=== PATIENT | female | born 1930 | race Caucasian/White ===

== ENCOUNTER 2016-05-15 07:29 | Emergency (ER) | payer OTHER ==
[2016-05-15 07:51] VITALS: BP 137/77; PULSE 74; TEMP 97.5; BMI 25.0
--- NOTE | 2016-05-15 08:13 | PDOC ---
History of Present Illness - General Chief Complaint: Pain, Acute Stated Complaint: FALL, LFT SHOULDER INJURY Time Seen by Provider: 05/15/16 08:04 History Source: Patient Exam Limitations: No Limitations - History of Present Illness Initial Comments: 05/15/16 08:11 85 yr female slipped on ice and fell 3 days ago injured left shoulder/upper arm. No head trauma no LOC. Pt taking ibuprofen with relief. 05/15/16 08:12 Occurred: reports: other (3 days ago) Severity: reports: mild Upper Extremity Pain Location: right: shoulder Method of Injury: reports: fell Extremity Pain Location - Extremity Pain Location Extremity Pain Locations: left: arm Past History - Past Medical History Allergies/Adverse Reactions: Allergies Allergy/AdvReac Type Severity Reaction Status Date / Time No Known Allergies Allergy Verified 05/15/16 07:44 Home Medications: Ambulatory Orders Nebivolol HCl [Bystolic] 2.5 mg PO DAILY 02/01/12 Valsartan [Diovan] 80 mg PO DAILY #30 tablet 09/30/15 COPD: Yes HTN: Yes - Psycho/Social/Smoking Cessation Hx Anxiety: No Suicidal Ideation: No Smoking Status: No Smoking History: Former smoker Have you smoked in the past 12 months: No Number of Cigarettes Smoked Daily: 0 If you are a former smoker, when did you quit?: 1996 Information on smoking cessation initiated: No Hx Alcohol Use: No Drug/Substance Use Hx: No Substance Use Type: None Review of Systems - Review of Systems Able to Perform ROS?: Yes Is the patient limited Vietnamese proficient: No Constitutional: No: Symptoms Reported HEENTM: No: Symptoms Reported Respiratory: No: Symptoms reported Cardiac (ROS): No: Symptoms Reported ABD/GI: No: Symptoms Reported : No: Symptoms Reported Musculoskeletal: Yes: See HPI *Physical Exam - Vital Signs Last Vital Signs Temp Pulse Resp BP Pulse Ox 97.5 F L 74 18 137/77 97 05/15/16 07:45 05/15/16 07:45 05/15/16 07:45 05/15/16 07:45 05/15/16 07:45 - Physical Exam General Appearance: Yes: Nourished, Appropriately Dressed HEENT: positive: EOMI, VIVIAN, TMs Normal, Pharynx Normal Neck: negative: Tender Respiratory/Chest: positive: Lungs Clear, Normal Breath Sounds Cardiovascular: positive: Regular Rhythm, Regular Rate Gastrointestinal/Abdominal: positive: Normal Bowel Sounds, Soft Extremity: positive: Normal Capillary Refill, Normal Inspection, Tender (left humeral head ), Other (limited ROM) Integumentary: positive: Normal Color, Dry, Warm Neurologic: positive: Fully Oriented, Alert, Normal Mood/Affect, Normal Response , Motor Strength 5/5 Procedures - Splinting Sling: Yes (left shoulder) ED Treatment Course - RADIOLOGY Radiology Studies Ordered: Category Date Time Status SHOULDER-LEFT [RAD] Stat Radiology 05/15/16 08:07 Ordered Medical Decision Making - Medical Decision Making 05/15/16 08:13 cc: left shoulder injury s/p fall will xray to r/o fracture nv intact, strong radial pulse, neg numbness or tingling 05/15/16 08:38 *DC/Admit/Observation/Transfer Diagnosis at time of Disposition: Shoulder injury Qualifiers: Encounter type: initial encounter Laterality: left Qualified Code(s): S49.92XA - Unspecified injury of left shoulder and upper arm, initial encounter - Discharge Dispostion Disposition: HOME Condition at time of disposition: Good - Referrals Referrals: Precious Huff MD [Primary Care Provider] - Santos Hall MD [Staff Physician] - - Patient Instructions Additional Instructions: use the sling while awake for the next few days follow with the orthopedist call today to make appointment for this week or next week continue to take ibuprofen as needed
== END 2016-05-15 09:29 | disposition home or self-care (01) ==
LOC: JERFT 07:29
DX: S49.92XA Unspecified injury of left shoulder and upper arm, initial encounter (principal); W00.9XXA Unspecified fall due to ice and snow, initial encounter; Y93.89 Activity, other specified; Y92.9 Unspecified place or not applicable; Z87.891 Personal history of nicotine dependence
CPT/HCPCS: 73030-TC-LT; 99281-25

== ENCOUNTER 2018-04-25 07:45 | Emergency (ER) | payer OTHER ==
[2018-04-25 07:56] VITALS: BP 156/80; PULSE 77; TEMP 97.9; BMI 23.3
--- NOTE | 2018-04-25 08:11 | PDOC ---
Attending Attestation - Resident Resident Name: LedaAracelis - ED Attending Attestation I have performed the following: I have examined & evaluated the patient, The case was reviewed & discussed with the resident, I agree w/resident's findings & plan, Exceptions are as noted - HPI HPI: 04/25/18 08:10 87y F hx chf (on laxis) presents with cough x 1 week that is productive of whitish sputum. Pt denies any hemoptysis, fever/chills, leg swelling, orthopnea , cp, sob, abd pain, diarrhea, melena, bpr. The pt states the cough feels a bit better, but decided to come in due to the lingering cough. Pt notes some times feels alonzo, but has had no change in her excercise tolerance. pt endorses mild nasal congestion. PMD: Dr. Huff - Physicial Exam PE: 04/25/18 08:34 GENERAL: The patient is awake, alert, and fully oriented, Nontoxic - in no acute distress. HEAD: Normocephalic, atraumatic. EYES: extraocular movements intact, sclera anicteric, conjunctiva clear. ENT: Normal voice, Moist mucous membranes. NECK: Normal range of motion, supple LUNGS: Breath sounds equal, clear to auscultation bilaterally. No wheezes, no rhonchi, no rales. HEART: Regular rate and rhythm, normal S1 and S2 without murmur, rub or gallop. ABDOMEN: Soft, nontender, normoactive bowel sounds. No guarding, no rebound. No CVA tenderness EXTREMITIES: Normal range of motion, trace edema. NEUROLOGICAL: No facial assymetry, Normal speech, moving all 4 extermities spontaneously and symmetrically PSYCH: Normal mood, normal affect. SKIN: Warm, Dry, normal turgor, - Medical Decision Making 04/25/18 08:42 87-year-old female history of CHF presenting with 1 week of cough productive of whitish sputum without any fever, chills, chest pain, worsening dyspnea exertion , orthopnea with some mild nasal congestion. On exam the patient is well- appearing, with a nonfocal exam. Likely URI consider possible mild CHF Will obtain blood work, chest x-ray EKG Anticipate discharge with supportive management 04/25/18 10:42 labs unrmarkable cxr clear will dc with pmd fu supportive care at home
--- NOTE | 2018-04-25 08:53 | PDOC ---
History of Present Illness - General Chief Complaint: Cold Symptoms Stated Complaint: COUGH Time Seen by Provider: 04/25/18 07:59 - History of Present Illness Initial Comments: Janae De La Vega is an 87yo woman with a PMH of CHF who presents to the ED with cough for one week. She states that she was concerned because the cough "just won't go away like it should" and she is worried that she has bronchitis. She does have an occasional cough at baseline, but this is worse than usual. It does not feel similar to when she has CHF exacerbation, when she feels more short of breath than she does now. She does admit to taking her lasix intermittently at home but says that she has discussed this with her quality control analyst; she takes it when she is feeling fluid overloaded. Ms De La Vega endorses nasal and sinus congestion along with the cough. She has not had any fevers, chills, increased SOB, LE edema, chest pain, nausea/vomiting, or increase or change in sputum production. Past History - Past Medical History Allergies/Adverse Reactions: Allergies Allergy/AdvReac Type Severity Reaction Status Date / Time No Known Allergies Allergy Verified 05/15/16 07:44 Home Medications: Ambulatory Orders Nebivolol HCl [Bystolic] 2.5 mg PO DAILY 02/01/12 Valsartan [Diovan] 80 mg PO DAILY #30 tablet 09/30/15 COPD: Yes HTN: Yes - Immunization History Immunization Up to Date: Yes - Suicide/Smoking/Psychosocial Hx Smoking Status: No Smoking History: Never smoked Have you smoked in the past 12 months: No Number of Cigarettes Smoked Daily: 0 If you are a former smoker, when did you quit?: 1996 Information on smoking cessation initiated: No Hx Alcohol Use: No Drug/Substance Use Hx: No Substance Use Type: None Review of Systems - Review of Systems Comments:: General: No fevers, no chills, no weight or appetite change, no malaise HEENT: No changes in vision, no changes in hearing, no congestion, no sore throat CV: No chest pain, no palpitations, no LE edema Pulm: No inc SOB, + cough, no wheezing GI: No nausea or vomiting, no change in bowel habits, no melena : No frequency, no urgency, no dysuria Musc: No back pain, no joint swelling, no recent injury Skin: No rash, no lesions, no erythema Endo: No excessive thirst, no heat/cold intolerance Heme: No unusual bruising or bleeding, no swollen glands Neuro: No syncope, no numbness/tingling, no focal weakness Vasc: No claudication Psych: No recent change in mood, no SI or HI *Physical Exam - Vital Signs Last Vital Signs Temp Pulse Resp BP Pulse Ox 97.9 F 77 16 156/80 95 04/25/18 07:53 04/25/18 07:53 04/25/18 07:53 04/25/18 07:53 04/25/18 07:53 - Physical Exam Comments: General: Comfortable, no acute distress HEENT: PERRL, EOMI, MMM, voice normal, normal neck ROM, no LAD Cards: RRR, no murmur appreciated Pulm: Comfortable on room air, slightly coarse breath sounds b/l Abd: Soft, nontender, nondistended : No CVA tenderness Ext: Atraumatic. No LE edema. ROM intact. Strength 5/5 and equal bilaterally Vasc: Extremities WWP. Skin: Normal color, no rashes or lesions Neuro: A&Ox3, CN grossly intact, normal speech, motor/sensory grossly intact and symmetric Psych: Mood appropriate to situation Moderate Sedation - Procedure Monitoring Vital Signs: Procedure Monitoring Vital Signs Temperature 97.9 F 04/25/18 07:53 Pulse Rate 77 04/25/18 07:53 Respiratory Rate 16 04/25/18 07:53 Blood Pressure 156/80 04/25/18 07:53 O2 Sat by Pulse Oximetry (%) 95 04/25/18 07:53 Heart Score/ECG Review - History History: Slightly suspicious - Electrocardiogram EKG: Normal - Age Age: >/= 65 - Risk Factors Risk Factors Heart Score: No Hx Hypercholesterolemia, No Hx Hypertension, No Hx Diabetes, No Smoking History, No Positive family hx of cardiac disease, No Hx Obesity Based on the list above the patient has:: 1-2 risk factors - ECG Intrepretation Rhythm: Regular Rhythm - [place]: Left [place] Deviation - P and [place] Prominent R with upright T in V1 (true posterior [place]): No Delta Wave(s) Present: No WPW: No - QRS Poor R Wave Progression: No Q Wave Present: No - ST and T Early Repolarization: No Non Specific ST-T Wave changes: No Flattened T Waves: No Prolonged Q-T Interval: No - ECG Impressions Normal ECG: Yes Non-specific ST Elevation: No Ischemic Changes: No Bradycardia: No ED Treatment Course - LABORATORY CBC & Chemistry Diagram: 04/25/18 09:00 04/25/18 09:00 - RADIOLOGY Radiology Studies Ordered: Category Date Time Status CHEST PA & LAT [RAD] Stat Radiology 04/25/18 08:10 Ordered Medical Decision Making - Medical Decision Making 04/25/18 08:15 Janae De La Vega is an 87yo woman with a PMH of CHF who presents to the ED with cough for a week. As she endorses nasal/sinus congestion but denies any SOB, chest pain, fevers/chills, n/v, or other associated symptoms, this is more suggestive of URI w/ cough than influenza or CHF exacerbation. - CBC, CMP. EKG to rule out acute cardiac pathology given pt's age and h/o CHF - CXR to evaluate for focal consolidation or fluid overload 04/25/18 09:21 - EKG reviewed. NSR, HR 65 - CXR completed. No focal consolidation, no congestion. Unchanged from previous. No concerns. - CBC completed w/o abnormalities. Chemistry pending - Discussed results at this point with Ms De La Vega. Most likely URI with cough. Discussed PMD follow up if her symptoms do not improve, and she states understanding and agreement. Likely to d/c home pending chemistry results. 04/25/18 10:02 - Chemistry notable for Cr 1.6, BUN 47. No recent results in system for comparison - Discussed with Ms De La Vega. Reports that she has been told that her kidney numbers were high previously. She states that she may not have been hydrating well at home recently. She agrees to rehydrate orally at home - Call placed to Dr Huff's service to confirm close follow up. 04/25/18 10:12 - Discussed with MICHELLE Laurent liquefaction plant operator for Dr Huff. She agrees with the plan to orally hydrate at home with Cr/BUN recheck early next week. - Instructed Ms De La Vega to increase her fluid intake, especially water, throughout the next few days and to hold her lasix until instructed otherwise. She understands and agrees with this plan, and she states that she feels that she's likely dehydrated. Discussed with Dr Mok. Aracelis Tompkins PGY1 *DC/Admit/Observation/Transfer Diagnosis at time of Disposition: URI with cough and congestion, Prerenal azotemia - Discharge Dispostion Disposition: HOME Condition at time of disposition: Stable Decision to Admit order: No - Referrals Referrals: Precious Huff MD [Primary Care Provider] - - Patient Instructions Printed Discharge Instructions: DI for Acute Bronchitis, DI for Common Cold Additional Instructions: Discharge Instructions: - You were seen in the emergency department for a cough over the past week along with nasal congestion - You had blood tests to check your cell counts and electrolytes. These were all normal aside from increased kidney function numbers, which could be due to mild dehydration. You also had a chest xray and EKG to check your heart and lungs, and these were both normal as well. - Your symptoms are most likely caused by a virus. Unfortunately, antibiotics do not treat a virus, but the symptoms will improve and resolve over time. Your cough could last up to 4 weeks, even once you feel better otherwise. - At home, make sure you are drinking plenty of fluids to stay hydrated. Try to increase your water intake over the course of the day (multiple small glasses rather than a large glass once or twice.) - Do not take your furosemide (lasix) until you follow up with Dr Huff. You will need to follow up for a repeat blood test to check your kidney function on Friday. Make sure that you call his office on Friday to schedule this test. - Placing a humidifier near your bed at night can help with congestion overnight. - If your symptoms do not improve within a week, you should make an appointment with your primary doctor for follow up. - Seek immediate medical care if your symptoms worsen or you become short of breath, have chest pain, develop fever to 101F or higher along with your cough, or if you become lightheaded, stop making urine, have excessive thirst, or have any other medical emergency. - Post Discharge Activity
[2018-04-25 09:14] LABS: BASO % 0.8 % (0-2.0); EOS % 4.1 % (0-4.5); HEMATOCRIT 36.6 % (32.4-45.2); HEMOGLOBIN 12.4 GM/dL (10.7-15.3); LYMPH % 18.6 % (8-40); MCH 31.4 pg (25.7-33.7); MEAN CELL VOLUME 92.4 fl (80-96); MEAN PLT VOLUME 8.3 fl (7.5-11.1); MONO % 15.6 % (3.8-10.2); NEUT % 60.9 % (42.8-82.8); PLATELET COUNT 206 K/MM3 (134-434); RBC 3.96 M/mm3 (3.60-5.2); RDW 13.2 % (11.6-15.6); WHITE BLOOD COUNT 4.6 K/mm3 (4.0-10.0)
[2018-04-25 09:37] LABS: ALBUMIN 3.9 g/dl (3.4-5.0); ALK PHOS 89 U/L (45-117); ANION GAP 8 MMOL/L (8-16); BILIRUBIN,TOTAL 0.4 mg/dL (0.2-1); BLOOD UREA NITROGEN 47 mg/dL (7-18); CALCIUM 8.6 mg/dL (8.5-10.1); CHLORIDE 109 mmol/L (98-107); CO2 23 mmol/L (21-32); CREATININE 1.6 mg/dL (0.55-1.3); GLUCOSE,RANDOM 93 mg/dL (74-106); POTASSIUM 4.4 mmol/L (3.5-5.1); SGOT/AST 17 U/L (15-37); SGPT/ALT 20 U/L (13-61); SODIUM 141 mmol/L (136-145); TOT PROT 7.4 g/dl (6.4-8.2)
--- NOTE | 2018-04-25 12:50 | EKG ---
Test Reason : Blood Pressure : / mmHG Vent. Rate : 065 BPM Atrial Rate : 065 BPM P-R Int : 190 ms QRS Dur : 074 ms QT Int : 386 ms P-R-T Axes : 038 -13 024 degrees QTc Int : 401 ms NORMAL SINUS RHYTHM WHEN COMPARED WITH ECG OF 28-SEP-2015 10:22, NO SIGNIFICANT CHANGE WAS FOUND Confirmed by JUNE HILL MD ([id number]) on 04/25/2018 12:49:57 PM Referred By: Confirmed By:JUNE HILL MD
== END 2018-04-25 10:35 | disposition home or self-care (01) ==
LOC: JER 07:45
DX: R06.9 Unspecified abnormalities of breathing (principal); R79.89 Other specified abnormal findings of blood chemistry; I11.0 Hypertensive heart disease with heart failure; I50.9 Heart failure, unspecified; J44.9 Chronic obstructive pulmonary disease, unspecified
CPT/HCPCS: 36415; 71046-TC-FY; 80053; 85025; 93005; 93010; 99281-25

== ENCOUNTER 2019-06-07 08:47 | Emergency (ER) | payer OTHER ==
[2019-06-07 08:55] VITALS: PULSE 79; BMI 24.1
[2019-06-07] MEDS ORDERED: DIPHTH,PERTUSS(ACELL),TET 0.5 ML DISP.SYRIN IM ONE ×2 (09:10→11:50)
--- NOTE | 2019-06-07 09:10 | PDOC ---
History of Present Illness - General Chief Complaint: Laceration Stated Complaint: FALL/HEAD INJURY Time Seen by Provider: 06/07/19 09:03 - History of Present Illness Initial Comments: HPI: 88yo F with PMH of HTN and CHF presenting after mechanical fall. Patient was stepping out of the car when when tripped over the curb and fell back, hitting her head against another car, suffering a laceration. No loss of consciousness, nausea, or vomiting. Patient recalls the entire episode. Not on blood thinners. Denies prodrome prior to fall. No dizziness, weakness, chest pain, or shortness of breath. Not endorsing any other pain currently. Does not recall when was her last tetanus shot. No fevers or chills. PCP: Dr. Huff ROS: Constitutional: no fever, no chills HEENT: no throat pain, no dysphagia Cardiovascular: no chest pain, no palpitations Respiratory: no cough, no shortness of breath Gastrointestinal: no abdominal pain, no nausea Genitourinary: no dysuria, no hematuria Musculoskeletal: no myalgia, no arthralgia Skin: no rash, no itching Neurologic: no headache, no weakness Psych: no agitation, no anxiety PE: General: Awake, alert, and fully oriented, in no acute distress Head: 9cm flap laceration on posterior head with mild oozing Eyes: EOMI, sclera anicteric ENT: Moist mucus membranes Neck: Normal ROM, supple Lungs: Lungs clear, Normal breath sounds Cardio: Regular rhythm, S1 and S2 present Abdomen: Soft, nontender. No guarding, no rebound, no masses Extremities: Normal range of motion, Distal pulses present SKIN: Warm, Dry, normal turgor Neurologic: Cranial nerves II through XII intact. Normal speech, sensation, strength, coordination ED Course/MDM: DDX including but not limited to mechanical fall, brain bleed, syncope, seizure Presentation consistent with mechanical fall Nonfocal neurologic exam Laceration will require repair 06/07/19 09:10 CT Head: "EXAM#: TYPE/EXAM: RESULT: [id number] CT/HEAD CT WITHOUT CONTRAST REASON FOR THE STUDY. Status post fall. CT SCAN OF THE HEAD C-. COMPARED STUDY. CT brain February 01, 2012 FINDINGS. Serial axial images of the brain were obtained from foramen magnum to the cranial vertex without intravenous contrast with coronal, sagittal reconstruction. There is no evidence of acute subarachnoid hemorrhage, acute intra-axial or extra-axial fluid collection consistent with subdural or epidural hematoma. No mass effect, midline shift, acute territorial ischemic changes, herniation or edema is present. Normal carpenter matter white matter differentiation. The cortical sulci, sylvian fissures, perimesencephalic cistern noted face. Loss of volume the brain parenchyma with involutional changes, posterior cortical atrophy. CSF spaces unchanged from 2012. No evidence of hydrocephalus. Examination of the bone windows show no fracture. Hyperostosis frontalis interna The visualized paranasal sinuses and mastoid air cells are clear. Flattened pituitary gland along the floor of the sella turcica with partially CSF filled sella turcica. Status post cataract surgeries. IMPRESSION. No evidence of acute intracranial hemorrhage, edema, midline shift, mass effect, or skull fracture. No CT evidence of acute territorial ischemic changes." CT Cspine: "EXAM#: TYPE/EXAM: RESULT: [id number] CT/CERVICAL SPINE CT W/O CONTR Reason for the study. Status post fall CT scan of the cervical spine C-. Direct axial images were obtained from the base of the skull through T3-T4 The study was supplemented with computer-generated sagittal, coronal reconstruction images. Findings. Normal cervical lordosis. Intact odontoid. Narrowed predental space. Symmetrical articulation of atlantoaxial and occipito atlantal joints. Multilevel facet joint arthropathy. Mild degenerative anterior listhesis of C4 on C5. C5-C6. Disc space narrowing. Posterior disc osteophyte complex. C6-C7. Disc space narrowing posteriorly with degenerative endplate sclerosis. Minimal anterolisthesis of C7 on T1. Normal height of upper thoracic vertebral bodies. No evidence of central spinal canal stenosis Normal alignment of the facet joints. Intact visualized osseous structures. No acute bony abnormality seen. Patent airways. No evidence prevertebral soft tissue swelling. No bulky neck adenopathy is seen. Normal parapharyngeal spaces. No airspace opacities, or pneumothorax is seen in the lung apices. Right apical scarring. Impression. No evidence of acute fracture, compression deformities. Facet joint arthropathy. No evidence of central spinal canal stenosis. Reported By: Lowell Flores MD 06/07/19 1033" Laceration repaired by Dr. Ponce with 11 denisa Return precautions Stable for discharge Past History - Past Medical History Allergies/Adverse Reactions: Allergies Allergy/AdvReac Type Severity Reaction Status Date / Time No Known Allergies Allergy Verified 06/07/19 08:53 Home Medications: Ambulatory Orders Nebivolol HCl [Bystolic] 2.5 mg PO DAILY 02/01/12 Valsartan [Diovan] 80 mg PO DAILY #30 tablet 09/30/15 COPD: Yes Diabetes: No HTN: Yes Hypercholesterolemia: No - Immunization History Immunization Up to Date: Yes - Psycho Social/Smoking Cessation Hx Smoking Status: No Smoking History: Never smoked Have you smoked in the past 12 months: No Number of Cigarettes Smoked Daily: 0 If you are a former smoker, when did you quit?: 1996 Hx Alcohol Use: No Drug/Substance Use Hx: No Substance Use Type: None *Physical Exam - Vital Signs Last Vital Signs Temp Pulse Resp BP Pulse Ox 98.2 F 79 18 151/100 97 06/07/19 08:54 06/07/19 08:54 06/07/19 08:54 06/07/19 08:54 06/07/19 08:54 ED Treatment Course - RADIOLOGY Radiology Studies Ordered: Category Date Time Status CERVICAL SPINE CT W/O CONTR [CT] Stat CT Scan 06/07/19 09:[address] WITHOUT CONTRAST [CT] Stat CT Scan 06/07/19 09:03 Ordered Discharge - Discharge Information Problems reviewed: Yes Clinical Impression/Diagnosis: Head trauma Qualifiers: Encounter type: initial encounter Qualified Code(s): S09.90XA - Unspecified injury of head, initial encounter Scalp laceration Qualifiers: Encounter type: initial encounter Qualified Code(s): S01.01XA - Laceration without foreign body of scalp, initial encounter Condition: Improved Disposition: HOME - Follow up/Referral Referrals: Precious Huff MD [Primary Care Provider] - - Patient Discharge Instructions Patient Printed Discharge Instructions: DI for Laceration Repair -- [place] Additional Instructions: You came to the emergency department for a scalp laceration and head trauma. A CT scan of your head and neck did not show acute pathology. The wound was cleaned and you received 11 denisa. Keep the area clean. You got a tetanus shot called Boostrix today. Keep note of this date 06/07/2019. For the first 24 hours, please keep the denisa site DRY. After the first 24 ho urs, you can allow soap and water to run gently over the area. DO NOT scrub the denisa. DO NOT soak the denisa. Please follow up with your doctor or return to the Emergency Department in 7-14 days for re-evaluation and staple removal. Apply antibiotic ointment daily to the wound. RETURN to the ED if there is: redness or hardness around the wound, pain or tenderness, a red streak, yellow or green discharge oozing from the wound, fever or chills. - Post Discharge Activity
--- NOTE | 2019-06-07 13:12 | PDOC ---
*Physical Exam - Vital Signs Last Vital Signs Temp Pulse Resp BP Pulse Ox 98.2 F 79 18 151/100 97 06/07/19 08:54 06/07/19 08:54 06/07/19 08:54 06/07/19 08:54 06/07/19 08:54 - Physical Exam General Appearance: Yes: Nourished, Appropriately Dressed, Other (in good spirits, in NAD). No: Apparent Distress HEENT: positive: EOMI, VIVIAN, Normal Voice, Symmetrical, Pharynx Normal, Other (9cm crecent laceration with significant clotted blood around region). negative: Scleral Icterus (R), Scleral Icterus (L) Neck: positive: Trachea midline, Normal Thyroid, Supple. negative: Tender ED Treatment Course - Medications Given in the ED: ED Medications Discontinued Medications Generic Name Dose Route Start Last Admin Trade Name Freq PRN Reason Stop Dose Admin Diphtheria/Tetanus/Acell Pertussis 0.5 ml 06/07/19 09:10 06/07/19 13:04 Boostrix - IM 06/07/19 09:11 0.5 ml .ONCE ONE Administration Discharge - Discharge Information Problems reviewed: Yes Clinical Impression/Diagnosis: Head trauma Qualifiers: Encounter type: initial encounter Qualified Code(s): S09.90XA - Unspecified injury of head, initial encounter Scalp laceration Qualifiers: Encounter type: initial encounter Qualified Code(s): S01.01XA - Laceration without foreign body of scalp, initial encounter Condition: Improved Disposition: HOME - Follow up/Referral Referrals: Precious Huff MD [Primary Care Provider] - - Patient Discharge Instructions Patient Printed Discharge Instructions: DI for Laceration Repair -- [place] Additional Instructions: You came to the emergency department for a scalp laceration and head trauma. A CT scan of your head and neck did not show acute pathology. The wound was cleaned and you received 11 denisa. Keep the area clean. You got a tetanus shot called Boostrix today. Keep note of this date 06/07/2019. For the first 24 hours, please keep the denisa site DRY. After the first 24 hours, you can allow soap and water to run gently over the area. DO NOT scrub the denisa. DO NOT soak the denisa. Please follow up with your doctor or return to the Emergency Department in 7-14 days for re-evaluation and staple removal. Apply antibiotic ointment daily to the wound. RETURN to the ED if there is: redness or hardness around the wound, pain or tenderness, a red streak, yellow or green discharge oozing from the wound, fever or chills. - Post Discharge Activity Procedures - Laceration/Wound Repair Upper Posterior Head Wound Length: 7.6 to 12.5 cm (9) Wound Explored: clean, no foreign body present Wound's Depth, Shape: superficial, linear (crescent shaped), flap Irrigated w/ Saline: Yes Betadine Prep: No Anesthesia: 1% Lidocaine Amount of Anesthetic (ccs): 6 Wound Debrided: minimal Wound Repaired With: Denisa (11)
[2019-06-07 13:25] VITALS: BP 139/74; TEMP 97.2
--- NOTE | 2019-06-07 18:55 | PDOC ---
Documentation entered by Darrell Sawant SCRIBE, acting as scribe for Alexander Pearson MD. Alexander Pearson MD: This documentation has been prepared by the Savana bradley Nirvannie, SCRIBE, under my direction and personally reviewed by me in its entirety. I confirm that the documentation accurately reflects all work, treatment, procedures, and medical decision making performed by me. Attending Attestation - Resident Resident Name: Mariajose Hensley - ED Attending Attestation I have performed the following: I have examined & evaluated the patient, The case was reviewed & discussed with the resident, I agree w/resident's findings & plan, Exceptions are as noted - HPI HPI: 06/07/19 11:14 88y F hx chf (on lasix) who reports to the ED s/p mechanical fall with a laceration to the top of the head. As per patient he was getting out of his car at which time he fell hitting his head on another car sustaining a laceration. He denies any LOC, lightheadedness, diaphoresis, chest pain, or shortness of breath. Allergies: NKDA PMD: Dr. Huff - Physicial Exam PE: 06/07/19 13:09 head: 9cm laceration on crown of scalp no focal tenderness, stepoffs neg battles sign, neg racoon eyes chest: rrr, no mrg, no focal bony tenderness on palpation of chest wall Pulm: cta b/l Back: No midline tenderness to the cervical, thoracic or lumbar spine Musculoskelatal: FROM of b/l shoulders, elbows, wrist. FROM of hips, knees, ankles - No signs of ecchymosis, erythema, or crepitus noted on palpation extremities, chest wall, clavicals, ribs, back. - Medical Decision Making 06/07/19 12:44 ct negative laceration was irrigated and closed by resdient under my direction pt will bedc with supportive care
== END 2019-06-07 13:26 | disposition home or self-care (01) ==
LOC: JER 08:47
PROC: 3E0234Z Introduction of Serum, Toxoid and Vaccine into Muscle, Percutaneous Approach (ICD-10-PCS; principal; 2019-06-07)
PROC: 0HQ0XZZ Repair Scalp Skin, External Approach (ICD-10-PCS; 2019-06-07)
DX: S01.01XA Laceration without foreign body of scalp, initial encounter (principal); V48.4XXA Person boarding or alighting a car injured in noncollision transport accident, initial encounter; Y92.480 Sidewalk as the place of occurrence of the external cause; Y93.89 Activity, other specified; Y99.8 Other external cause status; I11.0 Hypertensive heart disease with heart failure; I50.9 Heart failure, unspecified; J44.9 Chronic obstructive pulmonary disease, unspecified; E78.00 Pure hypercholesterolemia, unspecified
CPT/HCPCS: 12004; 70450-TC; 72125-TC; 90471; 90715; 99284-25